=== PATIENT | female | born 1955 | race African-American/Black ===

== ENCOUNTER 2018-05-25 10:28 | Emergency (ER) | payer OTHER ==
[2018-05-25 10:33] VITALS: TEMP 98.7; BMI 27.8
--- NOTE | 2018-05-25 12:57 | PDOC ---
History of Present Illness - General Chief Complaint: Injury Stated Complaint: left knee pain s/p fell yesterday Time Seen by Provider: 05/25/18 10:40 History Source: Patient - History of Present Illness Initial Comments: 05/25/18 12:52 Pt presents to the ED complaining of pain and swelling to the left knee pain after mechanical trip and fall yesterday. Patient was able to ambulate after the fall, but presents today complaining of increasing pain and swelling. Pain is made much worse by attempts to bend her knee. Method of Injury: Yes: fell Lower Ext. Injury Location - Specific Injury Location Knees: left bone tenderness (tenderness over the tibial plateau), left joint effusion, left swelling, left pain Past History - Past Medical History Allergies/Adverse Reactions: Allergies Allergy/AdvReac Type Severity Reaction Status Date / Time metronidazole [From Flagyl] Allergy Intermediate Hives Verified 05/25/18 10:29 Metronidazole HCl Allergy Intermediate Hives Verified 05/25/18 10:29 [From Flagyl] Home Medications: Ambulatory Orders Solifenacin Succinate [Vesicare -] 10 mg PO DAILY 12/07/15 Anemia: No Asthma: No Cancer: Yes (BREAST left) Cardiac Disorders: No CVA: No COPD: No CHF: No Dementia: No Diabetes: No GI Disorders: No Disorders: Yes (OVERACTIVE BLADDER) HTN: No Hypercholesterolemia: No Liver Disease: No Seizures: No Thyroid Disease: No - Surgical History Abdominal Surgery: Yes (laparotomy) Appendectomy: Yes Cardiac Surgery: No Lung Surgery: No Neurologic Surgery: No Orthopedic Surgery: No - Suicide/Smoking/Psychosocial Hx Smoking Status: No Smoking History: Never smoked Have you smoked in the past 12 months: No Number of Cigarettes Smoked Daily: 5 If you are a former smoker, when did you quit?: MANY YEARS AGO Hx Alcohol Use: Yes (occasional wine) Drug/Substance Use Hx: No Substance Use Type: None Hx Substance Use Treatment: No Review of Systems - Review of Systems Able to Perform ROS?: Yes Musculoskeletal: Yes: Joint Pain All Other Systems: Reviewed and Negative *Physical Exam - Vital Signs Last Vital Signs Temp Pulse Resp BP Pulse Ox 98.7 F 86 18 161/99 100 05/25/18 10:29 05/25/18 10:29 05/25/18 10:29 05/25/18 10:29 11/08/18 10:29 - Physical Exam General Appearance: Yes: Nourished, Appropriately Dressed HEENT: positive: Normal Voice Extremity: positive: Other (L knee---able to flex to 30 degrees. + exquisite tenderness over the tibial plateau. No ecchymosis or deformity. + small effusion. Neurovascuarly intact. ) ED Treatment Course - RADIOLOGY Radiology Studies Ordered: Category Date Time Status LOWER EXTREMITY CT W/O CONTR [CT] Stat CT Scan 05/25/18 11:43 Taken KNEE 3 POS-LEFT [RAD] Stat Radiology 05/25/18 11:02 Completed - Medications Given in the ED: ED Medications Discontinued Medications Generic Name Dose Route Start Last Admin Trade Name Freq PRN Reason Stop Dose Admin Oxycodone/Acetaminophen 1 combo 05/25/18 11:02 05/25/18 11:09 Percocet 5/325 - PO 05/25/18 11:03 1 combo ONCE ONE Administration Medical Decision Making - Medical Decision Making 05/25/18 13:00 Pt presents to the ED complaining of knee pain after mechanical trip and fall. + tenderness over the tibial plateau. Xray negative but will check CT to rule out tibial plateau fracture. 05/25/18 13:22 CT is negative for fracture. Will discharge home. *DC/Admit/Observation/Transfer Diagnosis at time of Disposition: Knee sprain Qualifiers: Encounter type: initial encounter Involved ligament of knee: unspecified ligament Laterality: left Qualified Code(s): S83.92XA - Sprain of unspecified site of left knee, initial encounter - Discharge Dispostion Disposition: HOME Condition at time of disposition: Good Decision to Admit order: No - Referrals Referrals: Wiley Isaacs MD [Staff Physician] - - Patient Instructions Printed Discharge Instructions: DI for Knee Sprain Additional Instructions: return to the ED for worsening pain, severe swelling, if you are unable to bend the knee. Make sure that you follow up with your doctor and with orthopedics. - Post Discharge Activity
[2018-05-25 14:00] VITALS: BP 140/89; PULSE 78
== END 2018-05-25 13:43 | disposition home or self-care (01) ==
LOC: FER 10:28
DX: S83.92XA Sprain of unspecified site of left knee, initial encounter (principal); W18.09XA Striking against other object with subsequent fall, initial encounter; Y93.89 Activity, other specified; Y92.89 Other specified places as the place of occurrence of the external cause; Z87.891 Personal history of nicotine dependence; Z85.3 Personal history of malignant neoplasm of breast
CPT/HCPCS: 73562-TC-LT-FY; 73700-TC-RT; 99282-25

== ENCOUNTER → 2023-01-12 | Day surgery (SDC) | payer OTHER | END | disposition home or self-care (01) | LOC: JRADUS-SUR 10:15 | PROVIDERS: ATTEND Internal Medicine | PROC: 07D53ZX Extraction of Right Axillary Lymphatic, Percutaneous Approach, Diagnostic (ICD-10-PCS; principal; 2023-01-12) | DX: R59.0 Localized enlarged lymph nodes (principal); Z85.3 Personal history of malignant neoplasm of breast | CPT/HCPCS: 19083; 87899; 88305-TC; 88342-TC; A4648 ==